=== PATIENT | female | born 1985 | race Caucasian/White ===

== ENCOUNTER 2025-07-12 14:04 | Outpatient (CLI) | payer OTHER, SELFPAY | END 2025-07-12 14:05 | disposition home or self-care (01) | LOC: FRMREF 14:05 | PROVIDERS: Visit Provider Family Medicine | DX: M79.9 Soft tissue disorder, unspecified (principal); Z00.00 Encounter for general adult medical examination without abnormal findings; Z13.29 Encounter for screening for other suspected endocrine disorder | CPT/HCPCS: 80053; 84443; 86140 ==

== ENCOUNTER 2025-07-14 14:29 | Outpatient (CLI) | payer OTHER, SELFPAY ==
--- NOTE | 2025-07-14 14:45 | CRLHL7_ITS ---
For Patients: As a result of the Century Cures Act, medical imaging exams and procedure reports are released immediately into your electronic medical record. You may view this report before your referring provider. If you have questions, please contact your health care provider. Indication: patient reports a lump in her pubic area for about a week, not painful, just tender Technique: Grayscale and color Doppler ultrasound of the left pubic soft tissues performed in the area of concern. Comparison: None Findings: Ovoid lymph node appears to be present which measures 16 x 4 x 10 millimeters with normal internal vascularity and central fatty hilum. No cortical thickening. Impression: Normal subcutaneous lymph node. Dictated by Dougie Ngo MD @ 07/14/2025 8:34:54 PM (Electronically Signed)
== END 2025-07-14 14:30 | disposition home or self-care (01) ==
LOC: US 14:30
PROVIDERS: Visit Provider Family Medicine
DX: M79.9 Soft tissue disorder, unspecified (principal)
CPT/HCPCS: 76857

== ENCOUNTER 2025-07-19 08:50 | Outpatient (CLI) | payer OTHER, SELFPAY | END 2025-07-19 08:51 | disposition home or self-care (01) | LOC: NFLDREF 07-22 04:47 | PROVIDERS: PCP Family Medicine; Visit Provider Family Medicine | DX: M79.9 Soft tissue disorder, unspecified (principal) | CPT/HCPCS: 80053; 84443; 86140; 86592; 86703; 86706; 86803; 87340; 87491; 87591 ==